=== PATIENT | female | born 1970 | race Caucasian/White ===

== ENCOUNTER 2016-08-26 19:16 | Emergency (ER) | payer OTHER ==
[2016-08-26] MEDS ORDERED: CEPHALEXIN 500 MG CAPSULE ONE (23:14)
[2016-08-26] MEDS ORDERED: SULFAMETHOXAZOLE 800 MG/TRIMETHOPRIM 160 MG TABLET ONE (23:14)
[2016-08-26] MEDS ORDERED: HYDROCODONE/ACETAMINOPHEN 5/325MG TABLET ONE (23:14)
== END 2016-08-26 23:31 | disposition home or self-care (01) ==
LOC: ED 19:16
DX: L02.11 Cutaneous abscess of neck (principal); I10 Essential (primary) hypertension; E11.9 Type 2 diabetes mellitus without complications; F17.210 Nicotine dependence, cigarettes, uncomplicated
CPT/HCPCS: 87070; 87186; 99283 ×2; 10060 ×2; A9270 ×3